=== PATIENT | male | born 1945 | race Caucasian/White ===

== ENCOUNTER 2016-09-16 22:47 | Inpatient (IN) | payer MEDICARE, BC ==
--- NOTE | ~2016-09-16 | CN ---
Consultation Report [facility] [address] [place]. [address] NAME: SALENA FLORENTINO : 45 STATUS : ADM IN PAT#: [id number] AGE: 71 ADM/REG DATE : 09/17/16 MR#: [id number] REPORT SERV DATE: 09/17/16 DICTATED BY: DEBO ALVAREZ DATE: 09/17/16 REPORT STATUS : Draft TRANSCRIBED BY: MODL DATE: 09/17/16 CONSULTATION REPORT DATE OF CONSULTATION: Dear Dr. Kelley: Thank you for requesting my opinion regarding evaluation and management of Mr. Salena Florentino's shortness of breath, acute exacerbation of COPD, biapical lung masses with a known history of silicosis, and acute on chronic hypoxic respiratory failure. Mr. Salena Florentino returns to [facility] after a recent admission to [facility] for respiratory exacerbation. He is a 71-year-old gentleman with a significant past medical history of end-stage COPD, on home O2 on 2-3 L nasal cannula; moderate to severe pulmonary fibrosis; who presents with a two-day history of worsening shortness of breath and respiratory distress. He was at [facility] for similar episode in the middle of August for pneumonia and acute exacerbation of COPD. He required prolonged BiPAP therapy and did not require re-intubation. He spent approximately a week and a half at [facility] and was recently discharged home one week ago. The patient states that his symptoms started with associated symptoms of cough, sputum production, and wheezing. He describes his symptoms as moderate to severe in nature, well localized to the chest, nonradiating, with no significant alleviating or exacerbating factors. The patient was initially placed on BiPAP for work of breathing and respiratory distress and has since been liberated from the NIPPV. He has also had a dramatic weight loss in the past month with almost approximately 10 pounds. He currently denies any fevers, chills, night sweats, nausea, vomiting, diarrhea, constipation, chest pain, or hemoptysis. REVIEW OF SYSTEMS: A detailed 14-point review of systems was completed. Pertinent positives and negatives are listed above. PAST MEDICAL HISTORY: 1. End-stage COPD with 2-3 L nasal cannula, pulmonary fibrosis. 2. Biapical, partially calcified pulmonary masses, likely silicosis. 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 3. Gastroesophageal reflux disease. PAST SURGICAL HISTORY: 1. Bilateral cataracts. 2. Benign nose tumor resection. 3. Mole resection. ALLERGIES: PENICILLIN. Consultation Report [address] [place] [place]. [address] NAME: SALENA FLORENTINO : 45 STATUS : ADM IN PAT#: [id number] AGE: 71 ADM/REG DATE : 09/17/16 MR#: [id number] REPORT SERV DATE: 09/17/16 DICTATED BY: DEBO ALVAREZ DATE: 09/17/16 REPORT STATUS : Draft TRANSCRIBED BY: KIN DATE: 09/17/16 HOME MEDICATIONS: Reviewed and located in the paper chart. SOCIAL HISTORY: The patient is a long-term smoker, only quit approximately a month ago. He has smoked for greater than 50-pack years. He denies any significant alcohol or illicit drug abuse. FAMILY HISTORY: Cancer. PHYSICAL EXAMINATION: VITAL SIGNS: Afebrile, T-current of 98.3, pulse of 102, respiratory rate of 20, 3 L nasal cannula, 100% sat, FiO2 of 32, blood pressure 121/63, map of 84. GENERAL: Mild respiratory distress. Increased work of breathing, but able to communicate. Hard of hearing. HEENT: Normocephalic, atraumatic. Pupils are equal, round, and reactive to light and accommodation. Posterior oropharynx is clear. NECK: No JVD. No LAD. Trachea midline. CARDIOVASCULAR: Regular rate and rhythm. S1, S2 present. LUNGS: Diminished breath sounds bilaterally. ABDOMEN: Nontender, nondistended, soft. Positive bowel sounds. EXTREMITIES: No clubbing or cyanosis bilaterally. NEUROLOGIC: 5/5 strength in upper and lower extremities. Cranial nerves II through XII intact. Gait not tested. DTRs not performed. PSYCHIATRIC: Alert and oriented x3. No suicidal thoughts, intents, or plans were initiated by the patient. LABS: White count of 10, hemoglobin of 11, platelet count of 302. Chemistries demonstrate a creatinine of 0.58. Negative procalcitonin. PH is 7.48, PaCO2 of 45, PaO2 of 70 on 36% FiO2. IMAGING STUDIES: Chest x-ray on 09/16/2016 demonstrates severe chronic lung disease. No acute infiltrate. This chest x-ray has been personally reviewed by me, I agree with the above interpretation. ASSESSMENT AND PLAN: Mr. Salena Florentino is a pleasant but unfortunate, 71-year-old gentleman with a significant past medical history of heavy tobacco abuse; chronic respiratory failure secondary to chronic obstructive pulmonary disease, pulmonary fibrosis and silicosis, on 2-3 L nasal cannula at baseline; who returns to [facility] with now his third bout of respiratory failure in three months. The patient likely has multifactorial shortness of breath due to the followin. End-stage lung disease. 2. Acute exacerbation of chronic obstructive pulmonary disease. 3. Pulmonary fibrotic changes. 4. Silicosis. 5. Question of neoplasm given patient's rapid weight loss. Consultation Report [address] [id number] [facility] [place]. [address] NAME: SALENA FLORENTINO : 45 STATUS : ADM IN PAT#: [id number] AGE: 71 ADM/REG DATE : 09/17/16 MR#: [id number] REPORT SERV DATE: 09/17/16 DICTATED BY: DEBO ALVAREZ DATE: 09/17/16 REPORT STATUS : Draft TRANSCRIBED BY: KIN DATE: 09/17/16 At this point, I recommend the following to better optimize his pulmonary status: 1. Discontinue Spiriva and Proventil. 2. Start Brovana, Pulmicort, and DuoNeb scheduled and p.r.n. 3. Discontinue ceftriaxone and azithro. 4. Start vancomycin, cefepime, and Levaquin for HCAP. 5. Discontinue Solu-Medrol. 6. Start prednisone 40 mg p.o. q.24. 7. May discontinue triple IV antibiotic therapy pending clinical response and CT scan of the chest. 8. CT scan of the chest to rule out PE, lung mass, and pneumonia. 9. Urine Legionella antigen. 10.Urine strep antigen. 11.Flu A and B swab. Thank you for allowing me to participate in Mr. Salena Florentino's care. CLAIRE/KIN Debo Alvarez M.D. / [id number] CC: Kylah Schultz M.D.
--- NOTE | ~2016-09-16 | DS ---
Discharge Summary [facility] [address] [place]. [address] NAME: SALENA HAIDER : 45 STATUS : DIS IN PAT#: [id number] AGE: 71 ADM/REG DATE : 09/17/16 MR#: [id number] REPORT SERV DATE: 09/21/16 DICTATED BY: EUSEBIO ASHLEY DATE: 09/21/16 REPORT STATUS : Draft TRANSCRIBED BY: MODEmperatriz DATE: 09/21/16 ADMISSION DATE: 09/17/2016 DISCHARGE DATE: 09/21/2016 PRIVATE INQUIRY AGENT: Joss Pierre M.D. FINAL DIAGNOSES: 1. Acute on chronic hypoxic respiratory failure, improved. 2. Chronic obstructive pulmonary disease exacerbation. 3. Pulmonary fibrosis and silicosis. 4. Flu A. 5. Moderate protein-calorie malnutrition. 6. Depression. DIAGNOSTIC EXAMS: Chest x-ray showing severe chronic lung disease. No acute infiltrate. Neck with contrast CT showing abnormal enlarged appearance of the trachea above the anne marie suggest tracheomalacia, some minor retraction of the trachea to the right associated with fibrotic masses. No evidence of cervical visceral space mass. No evidence of any adenopathy. There is maxillary sinusitis, fairly marked. CTA of the chest showing severe emphysema with complex masses in the cavitating on the left but stable going back to June. Massive pulmonary fibrotic lesions. No PE, extensive coronary artery disease. Chest x-ray stable biapical masslike opacities right greater than the left. No new pulmonary opacities, stable COPD changes. HOSPITAL COURSE: Please refer to the H and P done by Dr. Kelley dated on 09/16/2016. Briefly, this is a 71-year-old male with end-stage COPD, pulmonary fibrosis, chronic respiratory failure, comes in with shortness of breath. The patient was recently admitted to [facility] in the middle of August for pneumonia and COPD exacerbation, received prolonged BiPAP therapy and then was transferred to [facility]. The patient was then transferred home, then started having some shortness of breath, cough productive of phlegm, and was then brought to the emergency room. In the ER, the patient was placed to the IMCU and Pulmonary consultation was done. He was later found to have the flu A and was placed on oseltamivir. The patient was then transferred out to the floor with improvement; however, he was too anxious. He knows that his lungs are bad and he does not have long to live, but he does not want to live like this. We got Palliative Care to consult and they placed the patient on narcotics and Ativan, and the patient calmed down and was able to further tell us his wishes, and he prefers to be on hospice and stay at home. The daughter was the POA, also was involved and she agreed with the patient's wishes. They have now decided that they prefer to use [facility]. Once we have everything set up, the patient will be discharged home with hospice and further management care of them. This has been explained to the patient and the daughter, and they agreed and understood the plan. LOPEZ/KIN Discharge Summary [address] [place]. [address] NAME: SALENA HAIDER : 45 STATUS : DIS IN PAT#: [id number] AGE: 71 ADM/REG DATE : 09/17/16 MR#: [id number] REPORT SERV DATE: 09/21/16 DICTATED BY: EUSEBIO ASHLEY DATE: 09/21/16 REPORT STATUS : Draft TRANSCRIBED BY: KIN DATE: 09/21/16 Eusebio Ashley M.D. / [id number] CC: Kylah Metcalf M.D.
--- NOTE | ~2016-09-16 | HP ---
History And Physical [id number] [place]. [address] NAME: SALENA FLORENTINO : 45 STATUS : ADM IN PAT#: [id number] AGE: 71 ADM/REG DATE : 09/17/16 MR#: [id number] REPORT SERV DATE: 09/17/16 DICTATED BY: DAVE PEPE DATE: 09/16/16 REPORT STATUS : Draft TRANSCRIBED BY: MODL DATE: 09/16/16 DATE OF ADMISSION: 09/17/2016 POINT OF ENTRY: [facility] Emergency Department. PRIMARY PUBLIC TRANSIT BUS DRIVER: Joss Pierre M.D. CHIEF COMPLAINT: Shortness of breath. HISTORY OF PRESENT ILLNESS: Mr. Florentino is a 71-year-old gentleman with a history of end- stage COPD, on 2 to 3 L by nasal cannula as well as a history of [id number] pulmonary fibrosis, who presents to the emergency department today with a two-day history of progressive worsening shortness of breath and respiratory distress. The patient states he was recently admitted to [facility] in the middle of August for pneumonia and acute COPD exacerbation. He stayed there approximately a week, required prolonged BiPAP therapy, but did not require intubation. Upon discharge from [facility], he spent a week and a half at [facility], and was recently discharged to home about 1 week ago. Beginning about evening, he started to notice progressive worsening shortness of breath with associated cough, sputum production, and wheezing. The patient increased his oxygen from 2 L to 3 L by nasal cannula with only minimal improvement. Given his worsening shortness of breath as well as dyspnea on exertion, he activated EMS this evening and presented to the emergency department. Initial evaluation in the emergency department was notable for a chest x-ray that was unremarkable, [place] [address], ABG was well compensated on 4.5 L by nasal cannula. Placed on BiPAP primarily for work of breathing and respiratory distress, and was subsequently admitted to the Hospitalist Service for further evaluation and management. Other than the above-mentioned symptoms, the patient also reports poor appetite as well as a 4- to 5-pound recent weight loss, but otherwise denies any fevers, night sweats, chills, chest pain, palpitations, abdominal pain, nausea, vomiting, diarrhea, constipation, dysuria, lower extremity edema, melena, hematochezia, or hemoptysis. REVIEW OF SYSTEMS: Comprehensive review of systems is otherwise negative unless listed in the history of present illness. PAST MEDICAL HISTORY: 1. End-stage COPD on 2 to 3 L by nasal cannula. 2. Pulmonary fibrosis. 3. Gastroesophageal reflux disease. 4. Biapical, partially-calcified pulmonary masses, felt to represent sequela of the patient's known pulmonary fibrosis. History And Physical [address] [address] NAME: SALENA FLORENTINO : 45 STATUS : ADM IN PAT#: [id number] AGE: 71 ADM/REG DATE : 09/17/16 MR#: [id number] REPORT SERV DATE: 09/17/16 DICTATED BY: DAVE PEPE DATE: 09/16/16 REPORT STATUS : Draft TRANSCRIBED BY: KIN DATE: 09/16/16 PAST SURGICAL HISTORY: 1. Bilateral cataracts. 2. Benign nose tumor resection. 3. Mole resection. ALLERGIES: PENICILLIN. HOME MEDICATIONS: 1. Tudorza one puff inhalation b.i.d. 2. DuoNeb q.i.d. 3. Albuterol one to two puff inhalation q.4 hours p.r.n. 4. Symbicort two puff inhalation b.i.d. 5. Bumex 1 mg every other day. 6. Docusate 100 mg b.i.d. 7. Flonase one spray nasal daily. 8. Claritin 10 mg daily. 9. Melatonin 3 mg at bedtime. 10.Nystatin swish and swallow q.i.d. 11.Zantac 150 mg at bedtime. 12.Daliresp 500 mcg daily. 13.Sertraline 25 mg daily. 14.Nasal spray daily. SOCIAL HISTORY: He is a long-term smoker, who only quit about a month ago during his admission to [facility]. Denies alcohol. Denies illicits. FAMILY MEDICAL HISTORY: Mother with cancer, type unknown. Father's history is unknown. Siblings with history of cancer, also type unknown. LABS AND IMAGIN. White count is 13.9, hemoglobin 11.6, hematocrit 33.9, and platelet count is 334. INR is 1.1. 2. Sodium is 137, potassium 3.2, chloride 93, carbon dioxide 35, BUN 8, creatinine 0.67, glucose is 162, calcium is 8.8, protein 7.5, albumin 2.8, bilirubin 0.3, ALT 22, AST 13, alkaline phosphatase is 81. 3. BNP is 43. Troponin less than 0.02. 4. Lactic acid is 1.2. 5. EKG per my review shows sinus tachycardia with no evidence of any acute ischemia or infarction. 6. Chest x-ray per my review shows no acute cardiopulmonary abnormality such as consolidation or infiltrate. Does show stable COPD-type changes with hyperinflation, flattened diaphragms, and airspace loss. 7. ABG: pH is 7.47, pCO2 is 45, pO2 is 70, bicarbonate is 33, saturating 95% on 4.5 L by nasal cannula. PHYSICAL EXAMINATION: History And Physical [address] [address] NAME: SALENA FLORENTINO : 45 STATUS : ADM IN [facility]#: [id number] AGE: 71 ADM/REG DATE : 09/17/16 MR#: [id number] REPORT SERV DATE: 09/17/16 DICTATED BY: DAVE PEPE DATE: 09/16/16 REPORT STATUS : Draft TRANSCRIBED BY: MODEmperatriz DATE: 09/16/16 VITAL SIGNS: Temperature is 97.8 degrees Fahrenheit, pulse is 119, respirations 20, saturating 97% on 4 L by nasal cannula, blood pressure is 152/66. On recheck, blood pressure is now 109/60, pulse is 115. GENERAL: The patient is awake and alert, is visibly short of breath and tachypneic, but in no respiratory distress. He is a chronically ill-appearing, elderly male who is somewhat frail and cachectic. Family at bedside. HEENT: Atraumatic and normocephalic. Moist mucous membranes. Pupils are equal, round, reactive to light and accommodation. Extraocular eye movements intact. No scleral icterus. NECK: No jugular venous distention. No carotid bruits. CARDIAC: Tachycardic rate, regular rhythm. No murmurs or gallops. Normal S1, S2. LUNGS: He is not currently on BiPAP, but is tachypneic and somewhat short of breath, but in no respiratory distress. He does have decreased breath sounds in the bases as well as prolonged expiratory phase in all lung payne with some very mild wheezes in the bases as well. ABDOMEN: Soft, nontender, nondistended. Good bowel sounds. No rebound, guarding, or rigidity. EXTREMITIES: Warm and well perfused. No cyanosis, clubbing, or edema. SKIN: Warm and dry. PSYCHIATRIC: Affect appropriate. NEUROLOGIC: Alert and oriented x3. Cranial nerves 2 through 12 grossly intact. Speech is normal. Gait not assessed. ASSESSMENT AND PLAN: Mr. Florentino is a 71-year-old gentleman with a history of end-stage chronic obstructive pulmonary disease as well as advanced pulmonary fibrosis, who presents with a two-day history of progressive worsening shortness of breath. PROBLEM LIST: 1. Acute COPD exacerbation. 2. Acute on chronic hypoxic respiratory failure. 3. Advanced pulmonary fibrosis. 4. Leukocytosis. PLAN: 1. Acute COPD exacerbation: We will treat with IV steroids, doxycycline, as well as frequent bronchodilators. We will also place the patient on BiPAP overnight. 2. Acute on chronic hypoxic respiratory failure: The patient is now only requiring 4 to 5 L by nasal cannula for oxygen support. We will continue BiPAP treatment overnight, primarily for his shortness of breath and respiratory distress, and attempt to wean to intermittent BiPAP in the morning. 3. Leukocytosis: Likely stress response as I do not appreciate any evidence of pneumonia. Blood cultures have been obtained. We will check urinalysis as well as procalcitonin for completeness. 4. Pulmonary fibrosis: See above. 5. DVT prophylaxis: Lovenox subcu. 6. Code status: The patient wished to be full code. History And Physical [address] [address] NAME: SALENA FLORENTINO : 45 STATUS : ADM IN [facility]#: [id number] AGE: 71 ADM/REG DATE : 09/17/16 MR#: [id number] REPORT SERV DATE: 09/17/16 DICTATED BY: DAVE PEPE DATE: 09/16/16 REPORT STATUS : Draft TRANSCRIBED BY: KIN DATE: 09/16/16 CASSI/KIN Dave Pepe MD / [id number] CC: Kylah Schultz M.D. Carlos Baleeiro, M.D.
[2016-09-16 22:11] LABS: BE (BASE EXCESS) 8.1 MEQ/L (0 +/- 2.5); CARBOXYHEMOGLOBIN 0.9 % (0-3); DEVICE NC; HCO3 (ACTUAL BICARBONATE) 32.7 MEQ/L (23-27); HEMOBLOGIN CONTENT 12.7 G/DL (14-18); INSTRUMENT SERIAL # 8087; METHEMOGLOBIN 0.3 % (0-3); O2 CONTENT 16.8 VOL% (18-24); OPERATOR ID 32193; PCO2 (CO2 TENSION) 45 MMHG (35-45); PO2 (O2 TENSION) 70 MMHG (79-93); SAMPLE Arterial; pH 7.48 (7.37-7.43)
[2016-09-16 22:41] LABS: BASOPHILS 0.1 %; BASOPHILS ABSOLUTE 0.02 10/3/uL (0.0-0.16); EOSINOPHILS 3.4 %; EOSINOPHILS ABSOLUTE 0.47 10/3/uL (0.0-0.53); ER CBC TAT 0 Hrs 08 Mins; HEMOGLOBIN 11.6 g/dL (13.6-17.8); IMMATURE GRANULOCYTES 0.2 %; IMMATURE GRANULOCYTES ABSOLUTE 0.03 10/3/uL (0.0-0.11); LYMPHOCYTES 8.7 %; MEAN CORPUS HGB CONC 34.2 g/dL (32.0-36.0); MEAN PLATELET VOLUME 8.6 fL (9.2-13.0); MONOCYTES 5.4 %; MONOCYTES ABSOLUTE 0.75 10/3/uL (0.21-1.20); NEUTROPHILS 82.2 %; NEUTROPHILS ABSOLUTE 11.38 10/3/uL (2.02-8.40); PLATELET COUNT 334 10/3/uL (150-400); RBC DISTRIBUTION WIDTH 13.2 % (12.0-16.0); RED CELL COUNT 3.74 10/6/uL (4.7-6.1); WHITE BLOOD CELLS 13.9 10/3/uL (4.5-10.5)
[2016-09-16 22:45] LABS: HEMATOCRIT 33.9 % (40.0-51.0); MANUAL DIFF NO %; MEAN CORPUSCULAR VOLUME 90.6 fL (80-100)
[~2016-09-16 22:47] MED LIST: ACCUNEB INH; ALBUTEROL 0.083% INH; AYR NAS; BUM1 PO; CLARIT10 PO; DALIRESP500 MCG PO; DSS PO; DUONEB INH; FLONASE NAS; FLORASTOR250 MG PO; LEVAQUIN750 MG PO; MELA3 PO; NICODERM C21 MG/241 TOP; NITROSTAT0.4 MG SL; NYS500UDL PO; P10 PO; PROAIR HFA INH; SPIRIVA INH; STERAPRED DS10 MG; SYMBICORT 160/41 INH INH; T PO; TUDORZA PRESS400 MCG INH; TYLENOL PO; VENTOLIN HFA INH; VENTOLIN HFA PO; VIBRATAB100 MG PO; ZANTAC 150 PO; ZANTAC PO; ZANTAC150 MG PO; ZOLOFT25 MG PO; [UNRECOGNIZED DRUG - CODE] PO; [UNRECOGNIZED DRUG - OTHER] INH
[2016-09-16 22:49] LABS: INTERNATIONAL NORMAL RATI 1.1 UNITS (-); PARTIAL THROMBO TIME 37.6 SEC (22.5-37.2); PROTIME (NOT ORD) 13.9 SEC (12.0-14.5)
[2016-09-16 22:54] LABS: A/G RATIO 0.6 (0.7-1.9); ALBUMIN 2.8 G/DL (3.5-5.0); ALKALINE PHOSPHATASE 81 U/L (45-117); BUN (BLOOD UREA NITROGEN) 8 MG/DL (6-23); CALCIUM, SERUM 8.8 MG/DL (8.5-10.4); CHLORIDE, SERUM 93 MMOL/L (96-112); CO2 (CARBON DIOXIDE) 35 MMOL/L (24-34); CREATININE 0.67 MG/DL (0.70-1.30); GFR AFRICAN AMERICAN 112 ML/MIN (>=60); GFR NON AFRICAN AMERICAN 97 ML/MIN (>=60); GLOBULIN 4.7 G/DL (2.5-4.1); GLUCOSE, SERUM 162 MG/DL (60-99); POTASSIUM, SERUM 3.2 MMOL/L (3.5-5.3); SGOT(AST) 13 U/L (5-40); SGPT(ALT) 22 U/L (5-65); SODIUM, SERUM 137 MMOL/L (135-148); TOTAL BILIRUBIN 0.3 MG/DL (0-1.2); TOTAL PROTEIN 7.5 G/DL (6.0-8.5); TROPONIN I <0.02 NG/ML (<0.05)
[2016-09-16 22:55] LABS: LACTATE 1.2 MMOL/L (0.3-2.4)
[2016-09-17 04:49] LABS: BASOPHILS 0.1 %; BASOPHILS ABSOLUTE 0.01 10/3/uL (0.0-0.16); EOSINOPHILS 0 %; HEMOGLOBIN 11.4 g/dL (13.6-17.8); IMMATURE GRANULOCYTES 0.1 %; IMMATURE GRANULOCYTES ABSOLUTE 0.01 10/3/uL (0.0-0.11); LYMPHOCYTES 4.6 %; LYMPHOCYTES ABSOLUTE 0.47 10/3/uL (0.67-4.30); MEAN CORPUS HGB CONC 34.5 g/dL (32.0-36.0); MEAN CORPUSCULAR HEMOGLOB 31.1 pg (26.0-34.0); MEAN CORPUSCULAR VOLUME 89.9 fL (80-100); MEAN PLATELET VOLUME 8.5 fL (9.2-13.0); MONOCYTES 0.6 %; MONOCYTES ABSOLUTE 0.06 10/3/uL (0.21-1.20); NEUTROPHILS 94.6 %; NEUTROPHILS ABSOLUTE 9.74 10/3/uL (2.02-8.40); PLATELET COUNT 302 10/3/uL (150-400); RBC DISTRIBUTION WIDTH 13.1 % (12.0-16.0); RED CELL COUNT 3.67 10/6/uL (4.7-6.1); WHITE BLOOD CELLS 10.3 10/3/uL (4.5-10.5)
[2016-09-17 04:50] LABS: MANUAL DIFF NO %
[2016-09-17 04:59] LABS: BUN (BLOOD UREA NITROGEN) 6 MG/DL (6-23); CALCIUM, SERUM 8.9 MG/DL (8.5-10.4); CHLORIDE, SERUM 95 MMOL/L (96-112); CO2 (CARBON DIOXIDE) 32 MMOL/L (24-34); CREATININE 0.58 MG/DL (0.70-1.30); GFR AFRICAN AMERICAN 119 ML/MIN (>=60); GFR NON AFRICAN AMERICAN 103 ML/MIN (>=60); GLUCOSE, SERUM 163 MG/DL (60-99); POTASSIUM, SERUM 3.5 MMOL/L (3.5-5.3); SODIUM, SERUM 137 MMOL/L (135-148)
[2016-09-17 21:12] LABS: INFLUENZA A SCREEN POSITIVE (NEGATIVE); INFLUENZA B SCREEN NEGATIVE (NEGATIVE)
[2016-09-18 05:50] LABS: BASOPHILS 0.1 %; BASOPHILS ABSOLUTE 0.01 10/3/uL (0.0-0.16); EOSINOPHILS 0 %; HEMATOCRIT 30.7 % (40.0-51.0); HEMOGLOBIN 10.6 g/dL (13.6-17.8); IMMATURE GRANULOCYTES 0.2 %; IMMATURE GRANULOCYTES ABSOLUTE 0.03 10/3/uL (0.0-0.11); LYMPHOCYTES 7.1 %; LYMPHOCYTES ABSOLUTE 0.87 10/3/uL (0.67-4.30); MANUAL DIFF NO %; MEAN CORPUS HGB CONC 34.5 g/dL (32.0-36.0); MEAN CORPUSCULAR HEMOGLOB 31.7 pg (26.0-34.0); MEAN CORPUSCULAR VOLUME 91.9 fL (80-100); MEAN PLATELET VOLUME 8.2 fL (9.2-13.0); MONOCYTES 6.1 %; MONOCYTES ABSOLUTE 0.75 10/3/uL (0.21-1.20); NEUTROPHILS 86.5 %; NEUTROPHILS ABSOLUTE 10.56 10/3/uL (2.02-8.40); PLATELET COUNT 318 10/3/uL (150-400); RED CELL COUNT 3.34 10/6/uL (4.7-6.1); WHITE BLOOD CELLS 12.2 10/3/uL (4.5-10.5)
[2016-09-18 06:07] LABS: BUN (BLOOD UREA NITROGEN) 9 MG/DL (6-23); CALCIUM, SERUM 8.7 MG/DL (8.5-10.4); CHLORIDE, SERUM 99 MMOL/L (96-112); CO2 (CARBON DIOXIDE) 33 MMOL/L (24-34); GFR AFRICAN AMERICAN 117 ML/MIN (>=60); GFR NON AFRICAN AMERICAN 101 ML/MIN (>=60); POTASSIUM, SERUM 3.7 MMOL/L (3.5-5.3); SODIUM, SERUM 139 MMOL/L (135-148)
[2016-09-18 06:09] LABS: GLUCOSE, SERUM 126 MG/DL (60-99)
[2016-09-19 05:05] LABS: BASOPHILS 0.1 %; BASOPHILS ABSOLUTE 0.01 10/3/uL (0.0-0.16); EOSINOPHILS 1.2 %; EOSINOPHILS ABSOLUTE 0.13 10/3/uL (0.0-0.53); HEMOGLOBIN 12.1 g/dL (13.6-17.8); IMMATURE GRANULOCYTES 0.5 %; IMMATURE GRANULOCYTES ABSOLUTE 0.05 10/3/uL (0.0-0.11); LYMPHOCYTES 20.2 %; LYMPHOCYTES ABSOLUTE 2.17 10/3/uL (0.67-4.30); MEAN CORPUS HGB CONC 34.1 g/dL (32.0-36.0); MEAN CORPUSCULAR HEMOGLOB 31.8 pg (26.0-34.0); MEAN CORPUSCULAR VOLUME 93.2 fL (80-100); MEAN PLATELET VOLUME 8.5 fL (9.2-13.0); MONOCYTES 10.6 %; MONOCYTES ABSOLUTE 1.14 10/3/uL (0.21-1.20); NEUTROPHILS 67.4 %; NEUTROPHILS ABSOLUTE 7.23 10/3/uL (2.02-8.40); PLATELET COUNT 402 10/3/uL (150-400); RBC DISTRIBUTION WIDTH 13.3 % (12.0-16.0); RED CELL COUNT 3.81 10/6/uL (4.7-6.1); WHITE BLOOD CELLS 10.7 10/3/uL (4.5-10.5)
[2016-09-19 05:06] LABS: HEMATOCRIT 35.5 % (40.0-51.0); MANUAL DIFF NO %
[2016-09-19 05:09] LABS: BUN (BLOOD UREA NITROGEN) 12 MG/DL (6-23); CALCIUM, SERUM 9.1 MG/DL (8.5-10.4); CHLORIDE, SERUM 99 MMOL/L (96-112); CO2 (CARBON DIOXIDE) 34 MMOL/L (24-34); GFR AFRICAN AMERICAN 110 ML/MIN (>=60); GFR NON AFRICAN AMERICAN 95 ML/MIN (>=60); GLUCOSE, SERUM 104 MG/DL (60-99); PHOSPHORUS, SERUM 2.7 MG/DL (2.5-4.5); POTASSIUM, SERUM 3.9 MMOL/L (3.5-5.3); SODIUM, SERUM 141 MMOL/L (135-148)
== END 2016-09-21 18:35 | disposition hospice, home (50) | DRG 193 ==
LOC: ER 22:47 → IMCU 09-17 00:04 → 5SO 09-18 18:23
PROVIDERS: Emergency Medicine; Internal Medicine
DX: J10.1 Influenza due to other identified influenza virus with other respiratory manifestations (principal); J96.21 Acute and chronic respiratory failure with hypoxia; E44.0 Moderate protein-calorie malnutrition; J44.1 Chronic obstructive pulmonary disease with (acute) exacerbation; Z68.1 Body mass index [BMI] 19.9 or less, adult; J84.10 Pulmonary fibrosis, unspecified; Z88.0 Allergy status to penicillin; Z87.891 Personal history of nicotine dependence; Z80.8 Family history of malignant neoplasm of other organs or systems; J62.8 Pneumoconiosis due to other dust containing silica; Z79.899 Other long term (current) drug therapy; K21.9 Gastro-esophageal reflux disease without esophagitis; J01.00 Acute maxillary sinusitis, unspecified; Z51.5 Encounter for palliative care; Z66 Do not resuscitate
CPT/HCPCS: 36600; 70491; 71010; 71020; 71275; 80048; 80053; 82805; 83605; 83735; 83880; 84100; 84145; 84484; 85025; 85610; 85730; 87040; 87641; 87804; 93005; 94640; 94660; 94668; 99291; A9270-GY; J0456; J0692; J1956; J2405; J2930; J3370; Q9967